=== PATIENT | male | born 1960 | race Caucasian/White ===

== ENCOUNTER 2020-08-17 09:26 | Day surgery (SDC) | payer OTHER, SELFPAY ==
[~2020-08-17] VITALS: Ht 162.6 cm; Wt 63.5 kg
[2020-08-17] MEDS ORDERED: LIDOCAINE 2% 100 MG/5 ML UJET TP ONE ×2 (11:45→12:40)
[2020-08-17] MEDS ORDERED: fentaNYL citrate 0.05 MG/ML VIAL ONE (11:45)
[2020-08-17] MEDS ORDERED: MIDAZOLAM 5 MG/5 ML VIAL ONE (11:45)
[2020-08-17] MEDS ORDERED: fentaNYL citrate 0.05 MG/ML VIAL IVP ONE (12:40)
== END 2020-08-17 12:41 | disposition home or self-care (01) ==
LOC: MDS 09:26 → MMU 09:35 → MDS 12:41
PROVIDERS: ATTEND Internal Medicine Gastroenterology
DX: Z12.11 Encounter for screening for malignant neoplasm of colon (principal); D12.2 Benign neoplasm of ascending colon; D12.3 Benign neoplasm of transverse colon; D12.4 Benign neoplasm of descending colon; K64.4 Residual hemorrhoidal skin tags; G43.909 Migraine, unspecified, not intractable, without status migrainosus; F17.210 Nicotine dependence, cigarettes, uncomplicated; E78.5 Hyperlipidemia, unspecified; Z79.899 Other long term (current) drug therapy; Z20.822 Contact with and (suspected) exposure to COVID-19
CPT/HCPCS: 45385; J3010; U0003; J2250

== ENCOUNTER 2023-11-20 09:45 | Day surgery (SDC) | payer OTHER ==
[~2023-11-20] VITALS: Ht 162.6 cm; Wt 68.0 kg
[2023-11-20] MEDS ORDERED: fentaNYL citrate 0.05 MG/ML VIAL ONE (11:55)
[2023-11-20] MEDS ORDERED: MIDAZOLAM 2 MG/2 ML VIAL ONE (12:05)
[2023-11-20] MEDS: fentaNYL citrate 0.05 MG/ML VIAL IVP ONE (12:25)
[2023-11-20] MEDS: LIDOCAINE 2% 100 MG/5 ML UJET TP ONE (12:33)
== END 2023-11-20 13:45 | disposition home or self-care (01) ==
LOC: MDS 09:45 → MMU 10:29 → MDS 13:45
PROVIDERS: ATTEND Internal Medicine Gastroenterology
DX: Z12.11 Encounter for screening for malignant neoplasm of colon (principal); K63.5 Polyp of colon; E78.00 Pure hypercholesterolemia, unspecified; Z86.010 Personal history of colon polyps
CPT/HCPCS: 45385; J3010; J2250